=== PATIENT | male | born 1940 | race Caucasian/White ===

== ENCOUNTER 2016-09-24 20:43 | Emergency (ER) | payer OTHER, MEDICARE ==
[2016-09-24] MEDS ORDERED: Amoxicillin/Clavulanate K 875-125 MG Tab ONE (21:30)
[2016-09-24] MEDS ORDERED: Lidocaine 2% with EPINEPHrine 1:100,000 20 ML MDV ONE (21:30)
--- NOTE | 2016-09-24 21:45 | EDM.PDOC ---
ED HPI GENERAL MEDICAL PROBLEM - General Chief Complaint: Wound Recheck Stated Complaint: WOUND AT BACK OF HEAD Time Seen by Provider: 09/24/16 21:10 Source of Information: Reports: Patient History Limitations: Reports: No limitations - History of Present Illness INITIAL COMMENTS - FREE TEXT/NARRATIVE: According to patient, [place] he slipped and fell backwards on his back and hit the back of his head and sustained a large laceration over hte scalp, which was bleeding. Pt did put some cold compresses on the scalp. No LOC. No bleeding form ENT. No nausea or vomiting. No headache or weakness. No blurry vision. Pt's last tetanus was in 2014. no other injuries. Onset: today Onset Date: 09/24/16 Onset Time: 19:30 Improves with: Reports: None Worsens with: Reports: None Associated Symptoms: Denies: confusion, chest pain, cough, diaphoresis, fever/ chills, headaches, loss of appetite, nausea/vomiting, seizure, shortness of breath, syncope, weakness Past Medical History HEENT History: Reports: Hard of hearing Social & Family History - Family History Family Medical History: Noncontributory ED ROS GENERAL - Review of Systems Review Of Systems: See Below Constitutional: Denies: fever, chills HEENT: Denies: Eye discharge, Throat pain, Throat swelling, Vertigo, Vision change Respiratory: Denies: Shortness of Breath, Cough, Sputum Cardiovascular: Denies: Chest pain, Lightheadedness GI/Abdominal: Denies: Abdominal pain, Nausea, Vomiting Musculoskeletal: Denies: shoulder pain, joint pain, joint swelling Skin: Denies: cyanosis, pruritis, rash Neurological: Denies: Confusion, Dizziness, Headache, Paresthesia, Syncope, Tremors, Trouble Speaking, Difficulty Walking, Weakness, Gait Disturbance ED EXAM, GENERAL - Physical Exam Exam: See Below Exam Limited By: No limitations General Appearance: alert, WD/WN, no apparent distress Eye Exam: bilateral eye: EOMI, normal inspection, PERRL Ears: normal external exam, normal canal, hearing grossly normal, normal TMs Ear Exam: bilateral ear: auricle normal, canal normal, TM normal Nose: normal inspection, normal mucosa, no blood Throat/Mouth: Normal inspection, Normal lips, Normal teeth, Normal gums, Normal oropharynx, Normal voice, No airway compromise Head: normocephalic, other (Scalp: There is a 8 cm on horizontal superficial scalp laceration over the vertex of the scalp there are 3 vertical extension of the laceration about 1 cm each. The scalp is not completely lacerated into [place]. No active bleeding presently. No step down felt on the cranium.). No: facial swelling, facial tenderness Neck: normal inspection, supple, non-tender, full range of motion Respiratory/Chest: no respiratory distress, lungs clear, normal breath sounds, no accessory muscle use, chest non-tender Cardiovascular: normal peripheral pulses, regular rate, rhythm, no edema, no gallop, no JVD, no murmur, no rub Neurological: alert, oriented, CN II-XII intact, normal cognition, normal gait, normal reflexes, no motor/sensory deficits ED GENERAL MEDICAL PROCEDURES - Laceration/Wound Repair Occipital Head Lac/wound length in cm: 11 Appearance: irregular Distal NVT: neuro & vascular intact Anesthetic type: local Local anesthesia - Lidocaine (Xylocaine): 2% with epi Local anesthetic volume: 4cc Skin prep: providone-iodine (betadine) Exploration/Debridement/Repair: wound explored Closed with: lesvia # of sutures: 14 (14 lesvia applied) Sterile dressing applied: provider Tetanus status addressed: Yes (uptodate) Complications: No Course - Vital Signs Text/Narrative:: Pt has a irregular scalp laceration, does appear superficial and gapping. The wound closed with lesvia under aseptic precautions. Pressure dressing applied. Pt advised to keep the wound clean and dry for 3 days. Avoid wetting the wound or shower for 3 days. Simple antibiotics dressings. Okay to shower after 3 days when the scalp is not bleeding or oozing. Started on augmentin for 10 days, considering the size of laceration and the skin maceration. Suture removal in 7 days. Advised to return to emergency room [facility], if she develops severe headache, nausea , vomiting, confusion, weakness, blurry vison, ringing in the ears shortness of breath in the next 24 hrs. Departure - Departure Time of Disposition: 21:50 Disposition: Home, Self-Care 01 Condition: fair Clinical Impression: Occipital scalp laceration Forms: ED Department Discharge - Problem List & Annotations (1) Occipital scalp laceration SNOMED Code(s): 553837548 Code(s): S01.01XA - LACERATION WITHOUT FOREIGN BODY OF SCALP, INITIAL ENCOUNTER Status: Acute Current Visit: Yes - Problem List Review Problem List Initiated/Reviewed/Updated: Yes - Assessment/Plan Assessment:: Scalp laceration 11 cm long Plan: Pt advised to keep the wound clean and dry for 3 days. Avoid wetting the wound or shower for 3 days. Simple antibiotics dressings. Cold compresses to be placed over the dressing intermittently Okay to shower after 3 days when the scalp is not bleeding or oozing. Started on augmentin for 10 days, considering the size of laceration and the skin maceration. Suture removal in 7 days. Advised to return to emergency room [facility], if she develops severe headache, nausea , vomiting, confusion, weakness, blurry vision, ringing in the ears shortness of breath in the next 24 hrs
== END 2016-09-24 21:50 | disposition home or self-care (01) ==
LOC: LB.ED 20:43
DX: S01.01XA Laceration without foreign body of scalp, initial encounter (principal); W19.XXXA Unspecified fall, initial encounter; W22.8XXA Striking against or struck by other objects, initial encounter; Y92.828 Other wilderness area as the place of occurrence of the external cause
CPT/HCPCS: 12004; 99283; A9270; 99282